=== PATIENT | male | born 1975 | race African-American/Black ===

== ENCOUNTER 2016-11-05 15:47 | Inpatient (IN) | payer OTHER ==
[~2016-11-05] VITALS: Ht 175.3 cm; Wt 61.8 kg
[2016-11-05 15:52] VITALS: Ht 175.3 cm; Wt 61.8 kg
[2016-11-05 16:11] VITALS: BP 112/61
[2016-11-05 19:15] LABS: MAGNESIUM 2.1 mg/dL (1.8-2.4); PHOSPHOROUS 6.5 mg/dL (2.5-4.9)
[2016-11-05 19:20] LABS: CHOLESTEROL/HDL RATIO 1.6
[2016-11-05 19:23] LABS: FREE T4 1.15 ng/dL (0.76-1.46)
[2016-11-05 19:29] VITALS: BP 130/78
[2016-11-05 19:29] LABS: T3 TOTAL 0.81 ng/mL
[2016-11-05 19:33] LABS: BASOPHIL % 0.2 % (0-2)
[2016-11-05 19:36] LABS: PLATELET COUNT 468 x10^3mcL (130-400); RED CELL DISTRIBUTION WIDTH 19.9 % (11.5-14.5)
[2016-11-05 19:42] LABS: CALCIUM 9.4 mg/dL (8.5-10.1); CARBON DIOXIDE 28.8 mmol/L (21-32); POTASSIUM SERUM 4.7 mmol/L (3.5-5.1)
[2016-11-05 19:58] LABS: CREATININE SERUM 7.1 mg/dL (0.7-1.3)
[2016-11-05 20:44] LABS: rbc morphology (normal/abnorm) ABNORMAL (NORMAL)
[2016-11-05 20:45] LABS: target cell (codocyte) 1+
[2016-11-05 21:28] VITALS: BP 131/79
[2016-11-06] VITALS (10 sets, daily range): BP systolic 132–178; BP diastolic 75–99
[2016-11-06 03:34] LABS: BASOPHIL % 0.5 % (0-2)
[2016-11-06 03:44] LABS: PLATELET COUNT 466 x10^3mcL (130-400); RED CELL DISTRIBUTION WIDTH 18.7 % (11.5-14.5)
[2016-11-06 03:45] LABS: CALCIUM 9.5 mg/dL (8.5-10.1); CARBON DIOXIDE 28.9 mmol/L (21-32); POTASSIUM SERUM 4.4 mmol/L (3.5-5.1)
[2016-11-06 03:46] LABS: rbc morphology (normal/abnorm) ABNORMAL (NORMAL)
[2016-11-06 03:47] LABS: CREATININE SERUM 8.2 mg/dL (0.7-1.3)
[2016-11-06] MEDS ORDERED: TOP50 PO (11:39)
[2016-11-06] MEDS ORDERED: LIPI20 PO (11:39)
[2016-11-06] MEDS ORDERED: ECO81 PO (11:39)
[2016-11-06] MEDS ORDERED: NIT0.4 SL (11:39)
[2016-11-06] MEDS ORDERED: COR200 PO (11:39)
[2016-11-06] MEDS ORDERED: NEP PO (11:39)
[2016-11-06] MEDS ORDERED: PRO10I SQ (14:00)
== END 2016-11-06 16:00 | disposition short-term general hospital (02) | DRG 280 ==
LOC: DU 15:47
PROVIDERS: Internal Medicine Interventional Cardiology; ADMIT Family Medicine
PROC: B2151ZZ Fluoroscopy of Left Heart using Low Osmolar Contrast (ICD-10-PCS; 2016-11-06)
PROC: B2111ZZ Fluoroscopy of Multiple Coronary Arteries using Low Osmolar Contrast (ICD-10-PCS; 2016-11-06)
PROC: 4A023N7 Measurement of Cardiac Sampling and Pressure, Left Heart, Percutaneous Approach (ICD-10-PCS; principal; 2016-11-06 08:30)
DX: I21.4 Non-ST elevation (NSTEMI) myocardial infarction (principal); J18.9 Pneumonia, unspecified organism; K85.90 Acute pancreatitis without necrosis or infection, unspecified; N18.6 End stage renal disease; I12.0 Hypertensive chronic kidney disease with stage 5 chronic kidney disease or end stage renal disease; I25.119 Atherosclerotic heart disease of native coronary artery with unspecified angina pectoris; E83.39 Other disorders of phosphorus metabolism; Z68.20 Body mass index [BMI] 20.0-20.9, adult; Z99.2 Dependence on renal dialysis; Z87.891 Personal history of nicotine dependence
CPT/HCPCS: CLHCL; 83880; 84439; C1769; C1887; C1894; J0885-EC; J1644; J1956; J2001; J2250; J2270; J3010; J3490; J7030; J7040; J7620; Q0092; Q9967